=== PATIENT | female | born 1975 | race Caucasian/White ===

== ENCOUNTER 2021-12-11 17:00 | Emergency (ER) | payer SELFPAY ==
[~2021-12-11] VITALS: Ht 172.7 cm; Wt 56.8 kg
[2021-12-11 17:20] VITALS: BP 114/74
[2021-12-11] MEDS ORDERED: DOXYCYCLINE 100MG CAPSULE PO ONE (17:30)
[2021-12-11] MEDS ORDERED: CefTRIAXone 500MG IM Kit w/LIDOcaine IM ONE (17:30)
[2021-12-11] MEDS ORDERED: DOXY100C43 PO (19:07)
== END 2021-12-11 18:44 | disposition home or self-care (01) ==
LOC: ER 17:02
DX: Z11.3 Encounter for screening for infections with a predominantly sexual mode of transmission (principal); F17.210 Nicotine dependence, cigarettes, uncomplicated; Z95.1 Presence of aortocoronary bypass graft; Z98.890 Other specified postprocedural states
CPT/HCPCS: 36415; 87491; 87591; 96372; 99283; J0696